=== PATIENT | female | born 1995 ===

== ENCOUNTER 2016-12-31 16:19 | Emergency (ER) | payer OTHER ==
[2016-12-31 16:25] VITALS: BP 119/80; PULSE 73; RESP 16; TEMP 97.9; O2SAT 100
--- NOTE | 2016-12-31 17:06 | C.PDOC ---
History Of Present Illness 21-year-old female, presents to the emergency department with complaints of left breast pain for 1 week, states she feels a lump. Patient denies fevers, injuries, redness or swelling. LNMP: 12/22 Time Seen by Provider: 12/31/16 16:50 Chief Complaint (Nursing): Breast Problem History Per: Patient History/Exam Limitations: no limitations Onset/Duration Of Symptoms: Days Current Symptoms Are (Timing): Still Present Past Medical History Reviewed: Historical Data, Nursing Documentation, Vital Signs Vital Signs: Last Vital Signs Temp 97.9 F 12/31/16 16:23 Pulse 73 12/31/16 16:23 Resp 16 12/31/16 16:23 BP 119/80 12/31/16 16:23 Pulse Ox 100 12/31/16 18:50 - Medical History PMH: No Chronic Diseases Family History: States: No Known Family Hx - Social History Hx Alcohol Use: No Hx Substance Use: No Review Of Systems Except As Marked, All Systems Reviewed And Found Negative. Constitutional: Negative for: Fever Musculoskeletal: Positive for: Other (Left breast pain with lump. no swelling or redness) Physical Exam - Physical Exam Appears: Non-toxic, No Acute Distress Skin: Warm, Dry, No Rash Head: Atraumatic, Normacephalic Eye(s): bilateral: Normal Inspection, EOMI Nose: Normal Oral Mucosa: Moist Lips: Normal Appearing Neck: Normal ROM Chest: Symmetrical, No Deformity, No Tenderness, Other Cardiovascular: Rhythm Regular, No Murmur Respiratory: Normal Breath Sounds, No Accessory Muscle Use Gastrointestinal/Abdominal: Soft, No Tenderness Extremity: Normal ROM Neurological/Psych: Oriented x3, Normal Speech Additional Physical Exam Comments: Breasts are symmetrical. No erythema, swelling, skin changes, masses or dimpling. Left breast: there is mild non-focal tenderness. ED Course And Treatment O2 Sat by Pulse Oximetry: 100 Medical Decision Making Medical Decision Making: Left breast pain, no signs of infection, abscess or other abnormality. Patient was recommended to take NSAIDs and f/u outpatient with OBGYN. Patient agreeable with plan and all questions answered. Disposition Counseled Patient/Family Regarding: Diagnosis, Need For Followup, Rx Given - Disposition Referrals: [facility] [Outside] [facility] [Outside] [facility] [Outside] Disposition: HOME/ ROUTINE Disposition Time: 17:03 Condition: STABLE Additional Instructions: Por favor, tome naproxen para el dolor y la inflamacin cada 6-8 horas segn sea necesario, alirio con alimentos para no molestar el estmago Seguimiento en la clnica para ms rafi Prescriptions: Naproxen [Naprosyn] 1 tab PO BID PRN #25 tab PRN Reason: Pain Instructions: Breast Self Exam for Women (ED) Print Language: SWEDISH - POA Present On Arrival: None - Clinical Impression Clinical Impression: Pain of breast - Scribe Statement The provider has reviewed the documentation as recorded by the Billibnohelia Esposito All medical record entries made by the Billibe were at my direction and personally dictated by me. I have reviewed the chart and agree that the record accurately reflects my personal performance of the history, physical exam, medical decision making, and the department course for this patient. I have also personally directed, reviewed, and agree with the discharge instructions and disposition.
== END 2016-12-31 17:32 | disposition home or self-care (01) ==
LOC: C.ER 16:19
DX: N64.4 Mastodynia (principal)

== ENCOUNTER 2018-06-19 22:05 | Emergency (ER) | payer OTHER ==
[2018-06-19 22:06] VITALS: BMI 21.9
[2018-06-19] MEDS ORDERED: Sodium Chloride 0.9% 1,000 ML IV ONE (22:23)
--- NOTE | 2018-06-19 22:23 | C.PDOC ---
History Of Present Illness patient presents with vaginal bleeding and abdominal cramping. States she is 3 months . . No f/c/n/v. Sharp , cramping abdominal discomfort Time Seen by Provider: 06/19/18 22:23 Chief Complaint (Nursing): Abdominal Pain History Per: Patient History/Exam Limitations: no limitations Onset/Duration Of Symptoms: Days Current Symptoms Are (Timing): Still Present Context: Other Severity: Moderate Pain Scale Rating Of: 4 Location Of Pain/Discomfort: Diffuse Radiation Of Pain To:: None Quality Of Discomfort: Dull, Cramping Associated Symptoms: denies: Fever, Chills, Nausea Exacerbating Factors: None Alleviating Factors: None Last Bowel Movement: Today Recent travel outside of the [place]: No Additional History Per: Family Abnormal Vaginal Bleeding: Yes Past Medical History Reviewed: Historical Data, Nursing Documentation, Vital Signs Vital Signs: Last Vital Signs Temp 98.5 F 06/19/18 22:11 Pulse 90 06/19/18 22:11 Resp 16 06/19/18 22:11 BP 119/80 06/19/18 22:11 Pulse Ox 99 06/19/18 22:11 - Medical History PMH: Denies: Chronic Kidney Disease Family History: States: No Known Family Hx - Social History Hx Alcohol Use: No Hx Substance Use: No - Immunization History Hx Tetanus Toxoid Vaccination: Yes Hx Influenza Vaccination: Yes Hx Pneumococcal Vaccination: No Review Of Systems Constitutional: Negative for: Fever, Chills ENT: Negative for: Throat Pain Cardiovascular: Negative for: Chest Pain Respiratory: Negative for: Shortness of Breath Gastrointestinal: Positive for: Abdominal Pain. Negative for: Nausea, Vomiting Genitourinary: Positive for: Vaginal Bleeding Musculoskeletal: Negative for: Back Pain Skin: Negative for: Rash Neurological: Negative for: Weakness Psych: Negative for: Anxiety Physical Exam - Physical Exam Appears: Non-toxic, No Acute Distress Skin: Warm, Dry Oral Mucosa: Moist Neck: Supple Cardiovascular: Rhythm Regular Respiratory: No Rales, No Rhonchi, No Wheezing Gastrointestinal/Abdominal: Soft, Tenderness (suprapubic) Back: Normal Inspection Extremity: Normal ROM Extremity: Bilateral: Atraumatic Gait: Steady ED Course And Treatment - Laboratory Results Result Diagrams: 06/19/18 23:41 06/19/18 23:41 O2 Sat by Pulse Oximetry: 99 Pulse Ox Interpretation: Normal Disposition Counseled Patient/Family Regarding: Studies Performed, Diagnosis, Need For Followup - Disposition Referrals: [facility] [Outside] [facility] [Outside] Disposition: HOME/ ROUTINE Disposition Time: 22:23 Condition: FAIR Additional Instructions: Please follow up with your field seismologist Instructions: Threatened Miscarriage (DC) Forms: Summize (Somali) Print Language: TELUGU - Clinical Impression Clinical Impression: Threatened , demise
[2018-06-19 23:45] LABS: BASO % 0.5 % (0.0-2.0); EOS # 0.2 K/uL (0.0-0.7); EOS % 3.3 % (0.0-4.0); HEMOGLOBIN 14.8 g/dL (11.0-16.0); LYMPH # 2.4 K/uL (1.0-4.3); LYMPH % 32.6 % (20.0-40.0); MEAN CORPUSCULAR HEMOGLOBIN 30.8 pg (27.0-31.0); MEAN CORPUSCULAR HGB CONC 34.6 g/dL (33.0-37.0); MEAN PLATELET VOLUME 7.3 fL (7.2-11.7); MONO # 0.5 K/uL (0.0-0.8); MONO % 6.5 % (0.0-10.0); NEUT # 4.2 K/uL (1.8-7.0); NEUT % 57.1 % (50.0-75.0); NRBC % 0.1 % (0.0-2.0); RBC 4.79 Mil/uL (3.80-5.20); WHITE BLOOD COUNT 7.4 K/uL (4.8-10.8)
[2018-06-19] MEDS ORDERED: Sodium Chloride 0.9% 1,000 ML ONE (23:55)
[2018-06-19 23:56] LABS: BLOOD UREA NITROGEN 6 mg/dL (7-17); CALCIUM 9.2 mg/dl (8.6-10.4); GFR NON-AFRICAN AMERICAN > 60
[2018-06-20 00:18] LABS: ALB/GLOB RATIO 1.4 (1.0-2.1); ALT/SGPT 20 U/L (9-52); AST/SGOT 44 U/L (14-36)
[2018-06-20 01:36] VITALS: BP 127/71; PULSE 61; RESP 20; TEMP 98.9; O2SAT 100
--- NOTE | 2018-06-20 08:44 | US ---
Date of service: 06/19/2018 PROCEDURE: OB Pelvic Ultrasound HISTORY: Supposedly 12 weeks months preg, vag bleed LMP: 03/24/2018 COMPARISON: None available. FINDINGS: UTERUS: Gestational sac: Single intrauterine gestation. Heart rate: No cardiac activity detected on this exam. age (Ultrasound estimated): 9 weeks 2 days +/-0 weeks 5 days. Fanta-gestational hemorrhage: A possible sliver like bleed 7 x 3 x 6 mm is present. Gestational sac mean sac diameter 3.95. Yolk sac present 0.26 cm. Next number pole crown-rump length 2.46 cm. Uterus measures 9.7 x 6.3 x 6.6 cm. Retroverted. CERVIX: Measures 2.8 cm. Long and closed. No cervical abnormality seen. RIGHT OVARY: Measures 2.4 x 1.6 x 2.3 cm. A small follicular type cystic structure measuring 8 x 7 x 9 mm is present. Flow present. LEFT OVARY: Measures 1.5 x 1.1 x 1.7 cm. No solid mass. Flow present FREE FLUID: None. OTHER FINDINGS: None. IMPRESSION: Single intrauterine gestation without cardiac activity. Estimated ultrasound age is 9 weeks 2 days +/-0 weeks 5 days. This contrasts with the clinical dates of 12 weeks 3 days. No comparison studies are available. Correlation with beta HCG levels. As an extra precaution consider follow-up pelvic ultrasound imaging in 2 to 3 days (or correlation with any prior serial beta HCG levels). Findings are suspicious for demise./failed .. Possible tiny sub chorionic hemorrhage Concordant results (preliminary interpretation) provided by fred.
== END 2018-06-20 01:10 | disposition home or self-care (01) ==
LOC: C.ER 22:05
DX: O03.9 Complete or unspecified spontaneous abortion without complication (principal)
CPT/HCPCS: 76801; 80053; 84702; 85025; 96360; 99284; J7030